=== PATIENT | male | born 1985 | race African-American/Black ===

== ENCOUNTER 2023-09-18 08:10 | Outpatient (RCR) | payer OTHER, SELFPAY ==
--- NOTE | 2023-09-18 08:39 | OT.OP.TRT ---
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 [employer] UE Outcome Measure Score = 38.64; [employer] UE Work Module Score = 25.00; [employer] UE Sports/Performing Arts Module Score = 75.00 (sports include bball and bowling). Indication of 5 out of 10 on Pain Assessment Grid relative to R thumb pain. Referral indicated 4 wks of worsening R thumb pain w/ locking w/ 'thumb 'sticking' in the flexed position w/ no h/o trauma. Report of obtaining x-rays of R hand/thumb; (-) avail today in system and/or from Joao. At time of eval, Joao reported that thumb 'sticks' in various positions, including in ext not just flexion. Joao denies use of hand based splint. (+) tightness in R thumb webspace; suspect R ulnar collateral MPJ lengthening given positioning of thumb radially from the MPJ and decreased stability at the MPJ. It is recommended that Joao be referred to a certified hand therapist w/ a consideration for a referral certified UE adolescent medicine specialist MD to explore less conservative measures of treatment. No further treatment is recommended in this outpatient setting.
== END 2023-09-24 08:04 | disposition home or self-care (01) ==
LOC: OT 08:10
PROVIDERS: Family Provider Preventive Medicine Aerospace Medicine; PCP Preventive Medicine Aerospace Medicine; Referring Provider Preventive Medicine Aerospace Medicine; Visit Provider Preventive Medicine Aerospace Medicine
DX: M79.644 Pain in right finger(s) (principal)